=== PATIENT | male | born 1955 | race Caucasian/White ===

== ENCOUNTER 2021-06-05 13:42 | Emergency (ER) | payer OTHER, MEDICAID ==
[~2021-06-05] VITALS: Ht 182.9 cm; Wt 91.0 kg
[2021-06-05] MEDS: IV NORMAL SALINE 1,000ML 1,000 ML IV ONE ×2 (13:45→15:15)
[2021-06-05 14:00] LABS: BASO % 1 % (0-3); EOS # 0.2 x10^3/uL (0.0-0.7); EOS % 3 % (0-3); HEMATOCRIT 45.3 % (39.0-53.0); HEMOGLOBIN 14.4 g/dL (13.0-17.5); LYMPH % 28 % (24-48); MEAN CORPUSCULAR HEMOGLOBIN 29 pg (25-35); MEAN CORPUSCULAR HGB CONC 32 g/dL (31-37); MEAN CORPUSCULAR VOLUME 91 fL (79-100); MONO # 0.5 x10^3/uL (0.0-1.1); MONO % 7 % (0-9); NEUT # 4.3 x10^3uL (1.8-7.7); NEUT % 62 % (31-73); PLATELET COUNT 286 x10^3/uL (140-400); RED BLOOD COUNT 4.96 x10^6/uL (4.30-5.70); RED CELL DISTRIBUTION WIDTH 15.3 % (11.5-14.5)
[2021-06-05 14:10] LABS: CREATININE 1.4 mg/dL (0.7-1.3); GFR 50.5
[2021-06-05 14:19] LABS: BGAS PH 7.33 (7.35-7.46)
[2021-06-05 14:19] LABS: ACETAMIN < 2.0 mcg/mL (10-30); ETHANOL < 10 mg/dL (0-10)
--- NOTE | 2021-06-05 14:20 | RAD ---
AP chest. HISTORY: Altered mental status AP view was taken of the chest. Lungs are free of infiltrates. Heart is normal in size without heart failure. There is no effusion. IMPRESSION: 1. No acute chest disease. Electronically signed by: Regan Armstrong MD (06/05/2021 2:17 PM) [facility]
[2021-06-05 14:24] LABS: ALBUMIN 3.8 g/dL (3.4-5.0); ALBUMIN/GLOBULIN RATIO 1.3 (1.0-1.7); MAGNESIUM 2.4 mg/dL (1.8-2.4); TOTAL BILIRUBIN 0.3 mg/dL (0.2-1.0); TOTAL PROTEIN 6.8 g/dL (6.4-8.2)
--- NOTE | 2021-06-05 14:29 | EKG ---
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
[2021-06-05 14:52] LABS: % BANDS 2 % (0-9); % EOS 3 % (0-5); % LYMPHS 35 % (24-48); % MONOS 4 % (0-10); % SEGS 56 % (35-66)
[2021-06-05 14:53] LABS: PLT ESTIMATE ADEQUATE (ADEQUATE)
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
[2021-06-05 17:20] VITALS: BP 141/80
[2021-06-05 18:02] LABS: BARBITURATES NEG (NEG); BENZODIAZEPINES NEG (NEG); CANNABINOIDS NEG (NEG); COCAINE NEG (NEG); METHADONE NEG (NEG); OPIATES POS (NEG); PHENCYCLIDINE NEG (NEG)
[2021-06-05 18:04] LABS: AMPHETAMINE/METHAMPHETAMINE POS (NEG)
[2021-06-05 18:35] LABS: BACTERIA,URINE FEW /HPF (0-FEW); CLARITY,URINE CLEAR; COLOR,URINE YELLOW; GLUCOSE,URINE 100 mg/dL (NEG); NITRITE,URINE NEG (NEG); SQUAMOUS EPITHELIAL CELL,UR FEW /LPF; UROBILINOGEN,URINE 0.2 mg/dL (0.2 mg/dL)
[2021-06-05 18:36] LABS: GRANULAR CASTS,URINE MANY /HPF
== END 2021-06-05 17:30 | disposition home or self-care (01) ==
LOC: ER 13:42
DX: T40.601A Poisoning by unspecified narcotics, accidental (unintentional), initial encounter (principal); Y92.89 Other specified places as the place of occurrence of the external cause
CPT/HCPCS: 36415; 71045; 80053; 80307; 80329; 81001; 82803; 83605; 83690; 83735; 83880; 84484; 85007; 85025; 85379; 93005; 96360; 96361; 99285; G0480; J7030